=== PATIENT | female | born 1995 | race Two or more races ===

== ENCOUNTER 2021-07-31 22:15 | Emergency (ER) | payer OTHER ==
[~2021-07-31] VITALS: Ht 160 cm; Wt 90.7 kg
[2021-07-31 22:55] VITALS: BP 131/82
== END 2021-07-31 23:16 | disposition home or self-care (01) ==
LOC: ER 22:31
DX: N93.8 Other specified abnormal uterine and vaginal bleeding (principal); D64.9 Anemia, unspecified